=== PATIENT | female | born 1960 | race Hispanic/Latino ===

== ENCOUNTER 2023-05-15 12:28 | Emergency (ER) | payer OTHER ==
[~2023-05-15] VITALS: Ht 152.4 cm; Wt 63.5 kg
[2023-05-15 13:04] LABS: BASOPHILS % (AUTO) 0.6 % (0.0-5.0); EOSINOPHILS % (AUTO) 2.8 % (0.0-8.0); HEMATOCRIT 38.8 % (36-48); LYMPHOCYTES % (AUTO) 36.7 % (21.0-51.0); MEAN CORPUSCULAR HEMOGLOBIN 31.7 pg (27.0-33.0); MONOCYTES % (AUTO) 8.7 % (3.0-13.0); NEUTROPHILS % (AUTO) 50.9 % (40.0-77.0); PLATELET COUNT (AUTO) 286 K/uL (130-400); RED BLOOD CELL COUNT(AUTO) 4.17 MIL/uL (4.00-5.50); RED CELL DISTRIBUTION WIDTH 12.4 % (11.0-15.5); WHITE BLOOD COUNT (AUTO) 8.6 K/uL (4.8-10.8)
[2023-05-15 13:08] LABS: APPEARANCE,URINE CLEAR (CLEAR); BILIRUBIN,URINE NEGATIVE (NEGATIVE); COLOR,URINE YELLOW (YELLOW); GLUCOSE, URINE (UA) NEGATIVE (NEGATIVE); KETONES,URINE NEGATIVE (NEGATIVE); LEUKOCYTE ESTERASE ,URINE 250 Leu/uL (NEGATIVE); NITRATE,URINE 2+ (NEGATIVE); OCCULT BLOOD,URINE NEGATIVE (NEGATIVE); PH,URINE 5.5 (5.0-8.0); PROTEIN,URINE NEGATIVE (NEGATIVE); UROBILINOGEN,URINE 0.2 mg/dL (0.2-1.0)
[2023-05-15 13:17] LABS: ALBUMIN 4.1 g/dL (3.5-5.0); TOTAL PROTEIN, SERUM 7.7 g/dL (6.0-8.3)
[2023-05-15 13:38] LABS: BACTERIA,URINE MOD /HPF (None Seen); MUCUS,URINE RARE LPF (None Seen); OTHER CASTS, URINE 3 /LPF (None Seen); SQUAMOUS EPITHELIAL CELL,UR FEW /HPF (0-2)
[2023-05-15] MEDS ORDERED: ASPIRIN 325MG TAB PO ONE ×2 (16:30→17:00)
[2023-05-15 16:43] LABS: CREATINE KINASE, TOTAL 56 U/L (21-232)
[2023-05-15 16:44] LABS: MYOGLOBIN 39 ng/mL (10-92)
[2023-05-15] MEDS ORDERED: MELO-106 PO (17:24)
[2023-05-15] MEDS ORDERED: PENICILLIN G BENZATHINE LA 600,000 UNITS/ML SYG IM ONE (17:30)
[2023-05-15] MEDS ORDERED: CEPH500B PO (18:05)
[2023-05-15 18:17] VITALS: BP 138/76
[2023-05-15] MEDS ORDERED: CEPHALEXIN 500 MG CAPSULE PO ONE (18:30)
== END 2023-05-15 18:18 | disposition home or self-care (01) ==
LOC: EDH 12:28
DX: M94.0 Chondrocostal junction syndrome [Tietze] (principal); N39.0 Urinary tract infection, site not specified; Z98.890 Other specified postprocedural states
CPT/HCPCS: 36415; 71045; 80053; 81001; 82550; 83874; 84484; 85025; 87077; 87088; 87186; 93005